=== PATIENT | male | born 1935 | race Caucasian/White ===

== ENCOUNTER 2020-07-14 20:40 | Inpatient (IN) | payer MEDICARE, MEDICAID ==
[~2020-07-14] VITALS: Ht 170.2 cm; Wt 64.4 kg
[2020-07-14] MEDS ORDERED: ONDANSETRON HCL 4MG/2ML INJ IV STA (22:02)
[2020-07-14] MEDS ORDERED: SODIUM CHLORIDE 0.9% 500 ML IV ONE (22:15)
[2020-07-14] MEDS ORDERED: LABETALOL 5MG/ML SYR 20 MG/4 ML SYRINGE IV ONE (22:30)
[2020-07-14 23:07] LABS: BASOPHILS % 0.5 % (0.0-2.0); HEMATOCRIT. 43.9 % (42.0-52.0); HEMOGLOBIN. 15.3 g/dL (14.0-18.0); LYMPHOCYTES % 8.6 % (20.0-50.0); MEAN CORPUSCULAR HEMOGLOBIN 31.7 pg (28.0-32.0); MEAN CORPUSCULAR VOLUME 91.3 fL (80.0-94.0); MEAN PLATELET VOLUME 8.4 fl (7.4-10.4); MONOCYTES % 7.1 % (2.0-8.0); NEUTROPHILS % 83.8 % (40.0-76.0); PLATELET 161 x1000/uL (130-400); RED BLOOD CELL COUNT 4.81 mill/uL (4.7-6.1); RED CELL DISTRIBUTION WIDTH 12.8 % (11.6-14.6)
[2020-07-14 23:12] LABS: PARTIAL THROMBOPLASTIN TIME 28.8 sec (23.4-31.0); PROTHROMBIN TIME 10.6 sec (9.6-11.0)
[2020-07-14 23:30] LABS: CHLORIDE 99 mEq/L (98-107)
[2020-07-15 02:10] LABS: CLARITY URINE CLEAR (CLEAR); COLOR URINE YELLOW (YELLOW); KETONES URINE NEGATIVE (NEGATIVE); LEUKOCYTE ESTERASE URINE NEGATIVE (NEGATIVE); NITRITE URINE NEGATIVE (NEGATIVE); OCCULT BLOOD URINE TRACE (NEGATIVE); PROTEIN URINE 2+ (NEGATIVE); SPECIFIC GRAVITY URINE 1.018 (1.005-1.030); UROBILINOGEN URINE 0.2 E.U./dL (0.2-1.0)
[2020-07-15] MEDS ORDERED: IPRATROPIUM/ALBUTEROL 0.5-3(2.5)MG/3ML NEB HHN PRN (07:30)
[2020-07-15] MEDS ORDERED: DIPHENHYDRAMINE 50MG/ML VIAL IV PRN (07:30)
[2020-07-15] MEDS ORDERED: CEFTRIAXONE 1 G PREMIX 50 ML IV SCH (07:30)
[2020-07-15] MEDS ORDERED: GUAIFENESIN 200MG/10ML SUGAR FREE UDC PO PRN (07:30)
[2020-07-15] MEDS ORDERED: LORAZEPAM 2MG/ML CPJ IV PRN (07:30)
[2020-07-15] MEDS ORDERED: MAGNESIUM/ALUMINUM HYDROXIDE/SIMETHICONE 30ML UDC PO PRN (07:30)
[2020-07-15] MEDS ORDERED: ONDANSETRON HCL 4MG/2ML INJ IV PRN (07:30)
[2020-07-15 08:00] VITALS: BP_SYST 148; BP_SYST 218; BP_DIAS 79
[2020-07-15] MEDS: AZITHROMYCIN 500 MG in DEXT 5% WATER 250 ML IV SCH (09:26)
[2020-07-15] MEDS: ENOXAPARIN 30MG/0.3ML SYR SUBCUT SCH (09:26)
[2020-07-15] MEDS: CEFTRIAXONE 1,000 MG in DEXTROSE 5% WATER 50 ML IV SCH (11:02)
[2020-07-15 11:21] LABS: T4 FREE 1.13 ng/dL (0.76-1.46)
[2020-07-15 12:00] VITALS: BP 167/76
[2020-07-15] MEDS ORDERED: CALC-1280 MT (12:27)
[2020-07-15] MEDS ORDERED: LOSA25TA26 MT (12:27)
[2020-07-15] MEDS ORDERED: ASPI-1158 MT (12:27)
[2020-07-15] MEDS ORDERED: ACET650T37 PO (12:27)
[2020-07-15] MEDS ORDERED: OMEP20CA14 MT (12:27)
[2020-07-15] MEDS ORDERED: DOCU-272 MT (12:27)
[2020-07-15 13:09] LABS: BASOPHILS % 0.7 % (0.0-2.0); HEMOGLOBIN. 13.7 g/dL (14.0-18.0); MEAN CORPUSCULAR VOLUME 91.1 fL (80.0-94.0); MEAN PLATELET VOLUME 8.4 fl (7.4-10.4); MONOCYTES % 8.6 % (2.0-8.0); NEUTROPHILS % 73.7 % (40.0-76.0); PLATELET 133 x1000/uL (130-400); RED BLOOD CELL COUNT 4.28 mill/uL (4.7-6.1); RED CELL DISTRIBUTION WIDTH 12.8 % (11.6-14.6)
[2020-07-15] MEDS: CLONIDINE 0.1MG TABLET PO PRN (13:43)
[2020-07-15] MEDS: ACETAMINOPHEN 325MG TABLET PO PRN ×2 (13:43→20:42)
[2020-07-15] MEDS: SODIUM CHLORIDE 0.9% INJ 3ML FLUSH IVF SCH ×2 (13:46→20:43)
[2020-07-15 13:48] LABS: PHOSPHORUS 2.5 mg/dL (2.5-4.9)
[2020-07-15] MEDS: HYDRALAZINE HCL 50MG TABLET PO SCH ×2 (14:00→20:42)
[2020-07-15 16:00] VITALS: BP 105/44
[2020-07-15 18:01] LABS: CREATINE KINASE 41 IU/L (39-308)
[2020-07-15 18:02] LABS: CREATINE KINASE MB FRACTION < 1.0 ng/mL (0.5-3.6)
[2020-07-15 20:00] VITALS: BP 169/71
[2020-07-15 23:27] LABS: CREATINE KINASE 70 IU/L (39-308)
[2020-07-15 23:28] LABS: CREATINE KINASE MB FRACTION < 1.0 ng/mL (0.5-3.6)
[2020-07-16] VITALS: BP 107/71
[2020-07-16 04:00] VITALS: BP 130/83
[2020-07-16] MEDS: ACETAMINOPHEN 325MG TABLET PO PRN ×3 (04:39→15:50)
[2020-07-16] MEDS: HYDRALAZINE HCL 50MG TABLET PO SCH ×3 (05:07→20:44)
[2020-07-16] MEDS: SODIUM CHLORIDE 0.9% INJ 3ML FLUSH IVF SCH ×3 (05:09→20:47)
[2020-07-16 05:47] LABS: BASOPHILS % 0.7 % (0.0-2.0); EOSINOPHILS % 0.1 % (0.0-5.0); HEMATOCRIT. 40.5 % (42.0-52.0); LYMPHOCYTES % 25.6 % (20.0-50.0); MEAN CORPUSCULAR HEMOGLOBIN 31.4 pg (28.0-32.0); MEAN CORPUSCULAR VOLUME 90.8 fL (80.0-94.0); MEAN PLATELET VOLUME 8.3 fl (7.4-10.4); MONOCYTES % 11.6 % (2.0-8.0); PLATELET 132 x1000/uL (130-400); RED BLOOD CELL COUNT 4.46 mill/uL (4.7-6.1); RED CELL DISTRIBUTION WIDTH 12.8 % (11.6-14.6)
[2020-07-16 06:56] LABS: CHLORIDE 100 mEq/L (98-107)
[2020-07-16 07:26] LABS: CREATINE KINASE 104 IU/L (39-308)
[2020-07-16 07:27] LABS: CREATINE KINASE MB FRACTION 1.3 ng/mL (0.5-3.6)
[2020-07-16 08:00] VITALS: BP 150/71
[2020-07-16] MEDS: DOCUSATE SODIUM 100MG CAPSULE PO PRN (08:36)
[2020-07-16] MEDS: ENOXAPARIN 30MG/0.3ML SYR SUBCUT SCH (08:36)
[2020-07-16] MEDS ORDERED: MAGNESIUM 2 G PREMIX 50 ML IV NR (09:00)
[2020-07-16] MEDS: AZITHROMYCIN 500 MG in DEXT 5% WATER 250 ML IV SCH (09:48)
[2020-07-16] MEDS: CEFTRIAXONE 1,000 MG in DEXTROSE 5% WATER 50 ML IV SCH (11:04)
[2020-07-16 12:00] VITALS: BP 121/60
[2020-07-16 15:43] VITALS: BP 146/85
[2020-07-16 20:00] VITALS: BP 109/77
[2020-07-17] VITALS (7 sets, daily range): BP systolic 110–172; BP diastolic 60–82
[2020-07-17] MEDS: HYDRALAZINE HCL 50MG TABLET PO SCH ×3 (05:45→21:17)
[2020-07-17] MEDS: ALBUTEROL 6.7GM HFA INHALER ORI SCH (05:46)
[2020-07-17] MEDS: ACETAMINOPHEN 325MG TABLET PO PRN (05:46)
[2020-07-17] MEDS: SODIUM CHLORIDE 0.9% INJ 3ML FLUSH IVF SCH ×3 (05:46→21:16)
[2020-07-17 07:16] LABS: BASOPHILS % 0.9 % (0.0-2.0); EOSINOPHILS % 0.1 % (0.0-5.0); HEMATOCRIT. 37.5 % (42.0-52.0); HEMOGLOBIN. 13.1 g/dL (14.0-18.0); LYMPHOCYTES % 23.8 % (20.0-50.0); MEAN CORPUSCULAR HEMOGLOBIN 31.4 pg (28.0-32.0); MEAN CORPUSCULAR VOLUME 89.8 fL (80.0-94.0); MEAN PLATELET VOLUME 8.4 fl (7.4-10.4); MONOCYTES % 10.6 % (2.0-8.0); NEUTROPHILS % 64.6 % (40.0-76.0); PLATELET 129 x1000/uL (130-400); RED BLOOD CELL COUNT 4.17 mill/uL (4.7-6.1); RED CELL DISTRIBUTION WIDTH 12.8 % (11.6-14.6)
[2020-07-17] MEDS: ENOXAPARIN 30MG/0.3ML SYR SUBCUT SCH (08:42)
[2020-07-17] MEDS: AZITHROMYCIN 500 MG in DEXT 5% WATER 250 ML IV SCH (09:07)
[2020-07-17] MEDS: CEFTRIAXONE 1,000 MG in DEXTROSE 5% WATER 50 ML IV SCH (10:13)
[2020-07-17] MEDS: SODIUM CHLORIDE 0.9% 1,000 ML IV SCH (11:11)
[2020-07-17] MEDS ORDERED: SODIUM CHLORIDE 45ML SPRAY NS PRN (14:00)
[2020-07-17] MEDS: HYDROCODONE/ACETAMINOPHEN 10/325MG TABLET PO PRN (16:30)
[2020-07-17] MEDS: CLONIDINE 0.1MG TABLET PO PRN (16:31)
[2020-07-18] VITALS: BP 136/65
[2020-07-18] MEDS: ALBUTEROL 6.7GM HFA INHALER ORI SCH ×4 (02:48→17:24)
[2020-07-18] MEDS: SODIUM CHLORIDE 0.9% 1,000 ML IV SCH ×2 (02:48→17:27)
[2020-07-18 04:00] VITALS: BP 147/81
[2020-07-18] MEDS: ACETAMINOPHEN 325MG TABLET PO PRN (04:26)
[2020-07-18] MEDS: SODIUM CHLORIDE 0.9% INJ 3ML FLUSH IVF SCH ×3 (05:38→22:16)
[2020-07-18] MEDS: HYDRALAZINE HCL 50MG TABLET PO SCH ×3 (05:38→22:17)
[2020-07-18 06:19] LABS: BASOPHILS % 0.9 % (0.0-2.0); EOSINOPHILS % 0.1 % (0.0-5.0); HEMATOCRIT. 34.8 % (42.0-52.0); HEMOGLOBIN. 12.3 g/dL (14.0-18.0); LYMPHOCYTES % 26.7 % (20.0-50.0); MEAN CORPUSCULAR HEMOGLOBIN 31.7 pg (28.0-32.0); MEAN CORPUSCULAR VOLUME 89.6 fL (80.0-94.0); MEAN PLATELET VOLUME 7.8 fl (7.4-10.4); MONOCYTES % 11.2 % (2.0-8.0); NEUTROPHILS % 61.1 % (40.0-76.0); PLATELET 123 x1000/uL (130-400); RED BLOOD CELL COUNT 3.89 mill/uL (4.7-6.1); RED CELL DISTRIBUTION WIDTH 12.9 % (11.6-14.6)
[2020-07-18 08:00] VITALS: BP 128/58
[2020-07-18] MEDS: ENOXAPARIN 30MG/0.3ML SYR SUBCUT SCH (08:28)
[2020-07-18] MEDS: AZITHROMYCIN 500 MG in DEXT 5% WATER 250 ML IV SCH (09:41)
[2020-07-18] MEDS: CEFTRIAXONE 1,000 MG in DEXTROSE 5% WATER 50 ML IV SCH (11:18)
[2020-07-18 12:00] VITALS: BP 105/72
[2020-07-18] MEDS: POLYVINYL ALCOHOL OPHTH DROPS 15ML BOTHEYE PRN (14:57)
[2020-07-18 15:59] VITALS: BP 154/81
[2020-07-18 20:37] VITALS: BP 182/85
[2020-07-19] VITALS: BP 160/76
[2020-07-19] MEDS: ALBUTEROL 6.7GM HFA INHALER ORI SCH ×4 (03:10→17:06)
[2020-07-19 04:00] VITALS: BP 175/90
[2020-07-19 06:11] LABS: BASOPHILS % 0.8 % (0.0-2.0); EOSINOPHILS % 0.2 % (0.0-5.0); HEMATOCRIT. 36.4 % (42.0-52.0); HEMOGLOBIN. 12.6 g/dL (14.0-18.0); MEAN CORPUSCULAR HEMOGLOBIN 31.1 pg (28.0-32.0); MEAN CORPUSCULAR VOLUME 89.7 fL (80.0-94.0); MEAN PLATELET VOLUME 7.9 fl (7.4-10.4); MONOCYTES % 8.6 % (2.0-8.0); NEUTROPHILS % 70.4 % (40.0-76.0); PLATELET 128 x1000/uL (130-400); RED BLOOD CELL COUNT 4.06 mill/uL (4.7-6.1); RED CELL DISTRIBUTION WIDTH 12.9 % (11.6-14.6)
[2020-07-19] MEDS: HYDRALAZINE HCL 50MG TABLET PO SCH ×3 (06:23→21:11)
[2020-07-19] MEDS: SODIUM CHLORIDE 0.9% INJ 3ML FLUSH IVF SCH ×3 (06:23→21:12)
[2020-07-19 08:00] VITALS: BP 132/59
[2020-07-19] MEDS: ENOXAPARIN 30MG/0.3ML SYR SUBCUT SCH (08:30)
[2020-07-19] MEDS: SODIUM CHLORIDE 0.9% 1,000 ML IV SCH (08:30)
[2020-07-19] MEDS: HYDROCODONE/ACETAMINOPHEN 10/325MG TABLET PO PRN ×2 (08:31→15:17)
[2020-07-19] MEDS: AZITHROMYCIN 500 MG in DEXT 5% WATER 250 ML IV SCH (09:13)
[2020-07-19] MEDS: CEFTRIAXONE 1,000 MG in DEXTROSE 5% WATER 50 ML IV SCH (11:07)
[2020-07-19 11:41] LABS: BG BASE EXCESS -1.9 mmol/L (-2.0-2.0); BG CARBOXYHEMOGLOBIN 0.1 % (0.5-1.5); BG DEOXYHEMOGLOBIN 5.8 % (0.0-5.0); BG FRACTION INSPIRED OXYGEN 21; BG HCO3 ACT 22.1 mmol/L (22.0-26.0); BG METHEMOGLOBIN 0.3 % (0.0-1.5); BG OXYGEN SATURATION 94.2 % (92.0-98.5); BG OXYHEMOGLOBIN 93.8 % (94.0-97.0); BG PCO2 35.3 mmHg (35.0-45.0); BG PH 7.415 (7.350-7.450); BG PO2 68.7 mmHg (75.0-100.0); BG SAMPLE SITE RIGHT RADIAL; BG TOTAL HEMOGLOBIN 13.2 g/dL (12.0-18.0); BG VENT MODE ROOM AIR
[2020-07-19 12:00] VITALS: BP 140/77
[2020-07-19] MEDS ORDERED: POLYETHYLENE GLYCOL 3350 (17GM) 1 DOSE PACK PO NR (12:00)
[2020-07-19] MEDS ORDERED: BISACODYL 10MG SUPP PR PRN (12:00)
[2020-07-19 16:00] VITALS: BP 118/87
[2020-07-19 20:00] VITALS: BP 182/92
[2020-07-19] MEDS: CLONIDINE 0.1MG TABLET PO PRN (21:11)
[2020-07-19] MEDS: ACETAMINOPHEN 325MG TABLET PO PRN (21:12)
[2020-07-20] VITALS: BP 119/67
[2020-07-20] MEDS: ALBUTEROL 6.7GM HFA INHALER ORI SCH ×4 (00:29→17:04)
[2020-07-20] MEDS: POLYVINYL ALCOHOL OPHTH DROPS 15ML BOTHEYE PRN (00:29)
[2020-07-20] MEDS: SODIUM CHLORIDE 0.9% 1,000 ML IV SCH (00:32)
[2020-07-20 04:00] VITALS: BP 144/66
[2020-07-20 05:07] LABS: BASOPHILS % 0.7 % (0.0-2.0); EOSINOPHILS % 0.7 % (0.0-5.0); HEMATOCRIT. 34.8 % (42.0-52.0); HEMOGLOBIN. 12.2 g/dL (14.0-18.0); LYMPHOCYTES % 19.6 % (20.0-50.0); MEAN CORPUSCULAR HEMOGLOBIN 31.2 pg (28.0-32.0); MEAN CORPUSCULAR VOLUME 89.2 fL (80.0-94.0); MEAN PLATELET VOLUME 7.7 fl (7.4-10.4); MONOCYTES % 7.8 % (2.0-8.0); NEUTROPHILS % 71.2 % (40.0-76.0); PLATELET 125 x1000/uL (130-400); RED CELL DISTRIBUTION WIDTH 12.9 % (11.6-14.6)
[2020-07-20] MEDS: SODIUM CHLORIDE 0.9% INJ 3ML FLUSH IVF SCH ×2 (06:24→14:07)
[2020-07-20] MEDS: HYDRALAZINE HCL 50MG TABLET PO SCH ×2 (06:24→14:07)
[2020-07-20] MEDS: ACETAMINOPHEN 325MG TABLET PO PRN ×2 (06:25→16:04)
[2020-07-20 08:00] VITALS: BP 137/47
[2020-07-20] MEDS: DOCUSATE SODIUM 100MG CAPSULE PO PRN ×2 (08:37→16:04)
[2020-07-20] MEDS: ENOXAPARIN 40MG/0.4ML SYR SUBCUT SCH (08:38)
[2020-07-20 12:00] VITALS: BP 145/83
[2020-07-20 16:00] VITALS: BP 155/80
[2020-07-20 20:00] VITALS: BP 171/81
[2020-07-21] VITALS: BP 155/62
[2020-07-21] MEDS: ACETAMINOPHEN 325MG TABLET PO PRN (01:32)
[2020-07-21] MEDS: SODIUM CHLORIDE 0.9% INJ 3ML FLUSH IVF SCH ×4 (01:33→21:14)
[2020-07-21] MEDS: HYDRALAZINE HCL 50MG TABLET PO SCH ×4 (01:33→21:17)
[2020-07-21] MEDS: ALBUTEROL 6.7GM HFA INHALER ORI SCH ×4 (01:33→17:50)
[2020-07-21 04:00] VITALS: BP 165/78
[2020-07-21 07:48] LABS: BASOPHILS % 0.5 % (0.0-2.0); EOSINOPHILS % 0.3 % (0.0-5.0); HEMATOCRIT. 36.3 % (42.0-52.0); HEMOGLOBIN. 12.7 g/dL (14.0-18.0); LYMPHOCYTES % 25.1 % (20.0-50.0); MEAN CORPUSCULAR HEMOGLOBIN 31.4 pg (28.0-32.0); MEAN CORPUSCULAR VOLUME 89.7 fL (80.0-94.0); MEAN PLATELET VOLUME 7.9 fl (7.4-10.4); MONOCYTES % 8.8 % (2.0-8.0); NEUTROPHILS % 65.3 % (40.0-76.0); PLATELET 152 x1000/uL (130-400); RED BLOOD CELL COUNT 4.04 mill/uL (4.7-6.1); RED CELL DISTRIBUTION WIDTH 12.8 % (11.6-14.6)
[2020-07-21 08:00] VITALS: BP 143/64
[2020-07-21] MEDS: ENOXAPARIN 40MG/0.4ML SYR SUBCUT SCH (08:32)
[2020-07-21] MEDS: CLONIDINE 0.1MG TABLET PO PRN (11:02)
[2020-07-21 12:00] VITALS: BP 140/68
[2020-07-21 16:00] VITALS: BP 122/70
[2020-07-21 20:00] VITALS: BP 120/69
[2020-07-22] VITALS: BP 139/69
[2020-07-22] MEDS: ALBUTEROL 6.7GM HFA INHALER ORI SCH ×3 (00:48→12:44)
[2020-07-22 04:00] VITALS: BP 159/82
[2020-07-22] MEDS: SODIUM CHLORIDE 0.9% INJ 3ML FLUSH IVF SCH ×2 (05:04→13:03)
[2020-07-22] MEDS: HYDRALAZINE HCL 50MG TABLET PO SCH ×2 (05:06→13:03)
[2020-07-22 08:00] VITALS: BP 139/70
[2020-07-22] MEDS: ENOXAPARIN 40MG/0.4ML SYR SUBCUT SCH (08:03)
[2020-07-22 11:07] VITALS: BP 130/75
[2020-07-22 12:00] VITALS: BP 133/76
== END 2020-07-22 13:15 | disposition home or self-care (01) | DRG 720 ==
LOC: ER 20:40 → 7WST 07-15 02:41 → ENRESERV 07-15 04:35 → CANRESERV 07-15 04:35 → ENRESERV 07-15 04:40
PROVIDERS: ADMIT Internal Medicine; ATTEND Internal Medicine
DX: A41.89 Other specified sepsis (principal); U07.1 COVID-19; J12.89 Other viral pneumonia; N17.0 Acute kidney failure with tubular necrosis; E87.1 Hypo-osmolality and hyponatremia; E87.2 Acidosis; I16.1 Hypertensive emergency; J96.00 Acute respiratory failure, unspecified whether with hypoxia or hypercapnia; D64.9 Anemia, unspecified; B97.89 Other viral agents as the cause of diseases classified elsewhere; D72.819 Decreased white blood cell count, unspecified; I10 Essential (primary) hypertension; R91.1 Solitary pulmonary nodule; M54.9 Dorsalgia, unspecified; R55 Syncope and collapse; Z91.14 Patient's other noncompliance with medication regimen; Z79.899 Other long term (current) drug therapy
CPT/HCPCS: 36415; 36600; 71045; 71250; 72110; 80048; 80053; 80061; 81003; 82375; 82533; 82550; 82553; 82570; 82728; 82805; 83036; 83605; 83615; 83735; 83880; 83930; 84100; 84145; 84300; 84439; 84443; 84484; 85025; 85379; 87635; 93005; 99285; J0456; J0696; J1200; J1650; J2405; J3475; J3490; J7030; J7040; J7060